=== PATIENT | female | born 1990 | race Caucasian/White ===

== ENCOUNTER 2018-02-19 09:45 | Inpatient (IN) | payer OTHER ==
[2018-02-19] MEDS ORDERED: TERBUTALINE 1 ML (11:01)
[2018-02-19 11:09] LABS: ADD UMIC NO; UR ASCORBIC ACID NEGATIVE (NEGATIVE); UR BACTERIA FEW /HPF (NONE SEEN); UR BILIRUBIN (Dip) NEGATIVE (NEGATIVE); UR BLOOD (Dip) NEGATIVE (NEGATIVE); UR CLARITY SLIGHTLY CLOUDY (CLEAR); UR COLOR YELLOW (YELLOW); UR GLUCOSE (Dip) NEGATIVE (NEGATIVE); UR KETONES (Dip) NEGATIVE (NEGATIVE); UR LEUKOCYTE ESTERASE (Dip) NEGATIVE Leu/ul (NEGATIVE); UR NITRITE (Dip) NEGATIVE (NEGATIVE); UR RBC 1 /HPF (0-5); UR SPECIFIC GRAVITY (Dip) 1.014 (1.003-1.030); UR SQUAMOUS EPITHELIAL CELL FEW /HPF (FEW); UR TOTAL PROTEIN (Dip) NEGATIVE (NEGATIVE); UR UROBILINOGEN (Dip) NEGATIVE (NEGATIVE); UR WBC 1 /HPF (0-5)
[2018-02-19] MEDS: LACTATED RINGER'S 1,000 ML IV ×4 (11:09→18:29)
[2018-02-19] MEDS: TERBUTALINE 1 MG/ML INJ SC (11:10)
[2018-02-19] MEDS: BETAMET NA PHOS/AC(6 MG/ML) 5ML INJ IM (14:57)
[2018-02-19] MEDS: MAGNESIUM SULFATE 4 GM/100 ML 100 ML IV (15:04)
[2018-02-19] MEDS: MAGNESIUM SULFATE 20 GM/500 ML 500 ML IV (16:00)
[2018-02-19 17:00] LABS: ADD MAN DIFF? NO
[2018-02-19 17:03] LABS: BASOPHILS % 0.3 % (0.0-2.0); EOSINOPHILS # 0.1 10^3/ul (0.0-0.5); EOSINOPHILS % 0.6 % (0.0-7.0); HEMATOCRIT 35.5 % (37.0-47.0); HEMOGLOBIN 11.7 g/dl (12.0-16.0); LYMPHOCYTES # 1.3 10^3/ul (0.8-2.9); LYMPHOCYTES % 10.3 % (15.0-51.0); MEAN CORPUSCULAR HEMOGLOBIN 29.4 pg (29.0-33.0); MEAN CORPUSCULAR VOLUME 89.2 fl (82.0-101.0); MEAN PLATELET VOLUME 9.5 fl (7.4-10.4); MONOCYTE # 0.3 10^3/ul (0.3-0.9); MONOCYTES % 2.3 % (0.0-11.0); NEUTROPHIL # 10.8 10^3/ul (1.6-7.5); NEUTROPHILS % 85.1 % (39.0-77.0); PLATELET COUNT 503 10^3/UL (140-415); RED BLOOD COUNT 3.98 10^6/ul (4.20-5.40); RED CELL DISTRIBUTION WIDTH 13.1 % (11.5-14.5)
[2018-02-19 17:03] LABS: WHITE BLOOD COUNT 12.7 10^3/ul (4.8-10.8)
[2018-02-19 17:23] LABS: INR 0.92; PROTIME 12.4 Sec (11.9-14.9)
[2018-02-19 17:24] LABS: PARTIAL THROMBOPLASTIN TIME 28.3 Sec (25.0-35.0)
[2018-02-20 00:38] LABS: MAGNESIUM 5.2 mg/dl (1.7-2.5)
[2018-02-20] MEDS: MAGNESIUM SULFATE 20 GM/500 ML 500 ML IV (01:40)
[2018-02-20] MEDS: LACTATED RINGER'S 1,000 ML IV (06:48)
[2018-02-20 07:06] LABS: MAGNESIUM 5.6 mg/dl (1.7-2.5)
[2018-02-20] MEDS ORDERED: ONDANSETRON 4 MG INJ IV (09:30)
[2018-02-20] MEDS ORDERED: AL HYDROX/MG HYDROX/SIMETH 30 ML CUP PO (09:30)
[2018-02-20] MEDS: DOCUSATE SODIUM 100 MG CAP PO (09:34)
[2018-02-20] MEDS: FERROUS SULFATE (EC) 325 MG TAB PO (09:35)
[2018-02-20] MEDS: PRENATAL VITAMIN PO (09:35)
[2018-02-20] MEDS: ACETAMINOPHEN 325 MG TAB PO (09:36)
[2018-02-20 12:41] LABS: AMPHETAMINE/METHAMPHETAMINE Negative (NEGATIVE); BARBITURATES Negative (NEGATIVE); BENZODIAZEPINES Negative (NEGATIVE); CANNABINOIDS Negative (NEGATIVE); COCAINE Negative (NEGATIVE); OPIATES Negative (NEGATIVE)
[2018-02-20] MEDS: BETAMET NA PHOS/AC(6 MG/ML) 5ML INJ IM (15:01)
[2018-02-20 16:40] LABS: RAPID PLASMA REAGIN NONREACTIVE (NR)
[2018-02-21] MEDS: FERROUS SULFATE (EC) 325 MG TAB PO (09:11)
[2018-02-21] MEDS: PRENATAL VITAMIN PO (09:11)
[2018-02-21] MEDS: DOCUSATE SODIUM 100 MG CAP PO (09:11)
== END 2018-02-21 10:30 | disposition home or self-care (01) | DRG 782 ==
LOC: OBT 09:45 → L-D 09:46 → OBT 14:01 → L-D 13:30
DX: O62.9 Abnormality of forces of labor, unspecified (principal); Z3A.25 25 weeks gestation of pregnancy
CPT/HCPCS: 76815; 76817; 80307; 81001; 81003; 83735; 85025; 85610; 85730; 86592; 86850; 86900; 86901; 87086; 96360; 96361; 96372

== ENCOUNTER 2018-05-06 10:17 | Inpatient (IN) | payer OTHER ==
[2018-05-06] MEDS: LACTATED RINGER'S 1,000 ML IV* ×2 (11:58→17:19)
[2018-05-06] MEDS ORDERED: CARBOPROST 250 MCG INJ IM ×2 (12:00→22:00)
[2018-05-06] MEDS ORDERED: LIDOCAINE 1% (MPF) 30 ML INJ INJ (12:00)
[2018-05-06] MEDS ORDERED: BUTORPHANOL 2 MG INJ IV (12:00)
[2018-05-06] MEDS ORDERED: MISOPROSTOL 200 MCG TAB PR ×2 (12:00→22:00)
[2018-05-06] MEDS ORDERED: METHYLERGONOVINE 0.2 MG INJ IM ×2 (12:00→22:00)
[2018-05-06] MEDS ORDERED: OXYTOCIN 30 UNITS/LR 500 ML IV ×2 (12:00→22:00)
[2018-05-06 12:03] LABS: ADD MAN DIFF? NO
[2018-05-06 12:06] LABS: BASOPHILS % 0.5 % (0.0-2.0); EOSINOPHILS # 0.1 10^3/ul (0.0-0.5); EOSINOPHILS % 1.2 % (0.0-7.0); HEMATOCRIT 36.2 % (37.0-47.0); LYMPHOCYTES # 1.3 10^3/ul (0.8-2.9); LYMPHOCYTES % 15.7 % (15.0-51.0); MEAN CORPUSCULAR HEMOGLOBIN 28.6 pg (29.0-33.0); MEAN CORPUSCULAR HGB CONC 33.1 g/dl (32.0-37.0); MEAN CORPUSCULAR VOLUME 86.4 fl (82.0-101.0); MEAN PLATELET VOLUME 10.4 fl (7.4-10.4); MONOCYTE # 0.5 10^3/ul (0.3-0.9); MONOCYTES % 6.5 % (0.0-11.0); NEUTROPHILS % 74.5 % (39.0-77.0); PLATELET COUNT 418 10^3/UL (140-415); RED BLOOD COUNT 4.19 10^6/ul (4.20-5.40)
[2018-05-06] MEDS: AMPICILLIN 2 GM/NS (PMX) 100 ML IV (12:14)
[2018-05-06 12:29] LABS: PARTIAL THROMBOPLASTIN TIME 27.7 Sec (25.0-35.0); PROTIME 11.1 Sec (11.9-14.9); PT RATIO 0.9
[2018-05-06] MEDS: AMPICILLIN 1 GM/NS (PMX) 50 ML IV ×2 (15:30→19:39)
[2018-05-06 17:16] LABS: RAPID PLASMA REAGIN NONREACTIVE (NR)
[2018-05-06] MEDS ORDERED: FENTAnyl 2MCG/ML-ROPIV 0.2% 100 ML (17:20)
[2018-05-06 19:39] LABS: AMPHETAMINE/METHAMPHETAMINE Negative (NEGATIVE); BARBITURATES Negative (NEGATIVE); BENZODIAZEPINES Negative (NEGATIVE); CANNABINOIDS Negative (NEGATIVE); COCAINE Negative (NEGATIVE); OPIATES Negative (NEGATIVE)
[2018-05-06 20:28] LABS: HEPATITIS B SURFACE ANTIGEN NEGATIVE (NEGATIVE)
[2018-05-06] MEDS ORDERED: ONDANSETRON 4 MG INJ IV ×2 (21:00→22:00)
[2018-05-06] MEDS ORDERED: NALOXONE (0.4 MG/ML) INJ IV (21:00)
[2018-05-06] MEDS ORDERED: FENTAnyl 2MCG/ML-ROPIV 0.2% 100 ML BAG EPI (21:00)
[2018-05-06] MEDS ORDERED: DIPHENHYDRAMINE 50 MG INJ IV (21:00)
[2018-05-06] MEDS: OXYTOCIN 30 UNITS/LR 500 ML IV ×2 (21:42→23:13)
[2018-05-06] MEDS ORDERED: DIBUCAINE 1% 30 GM OINT PR (22:00)
[2018-05-06] MEDS ORDERED: ACETAMINOPHEN 325 MG TAB PO (22:00)
[2018-05-06] MEDS ORDERED: NACL 0.9% 3 ML SYG IV (22:00)
[2018-05-06] MEDS ORDERED: SENNA/DOCUSATE NA (8.6MG/50MG) TAB PO (22:00)
[2018-05-06] MEDS ORDERED: OXYCODONE/ASPIRIN (4.88/325) TAB PO (22:00)
[2018-05-07] MEDS: WITCH HAZEL/GLYCERIN PAD PR (01:26)
[2018-05-07] MEDS: BENZOCAINE 20% 56 ML SPRAY TOP (01:27)
[2018-05-07] MEDS: IBUPROFEN 600 MG TAB PO ×4 (01:27→17:40)
[2018-05-07] MEDS: LANOLIN 7 GM TUBE TOP (01:27)
[2018-05-07] MEDS: OXYCODONE/ASPIRIN (4.88/325) TAB PO ×2 (04:13→16:43)
[2018-05-07 08:20] LABS: ADD MAN DIFF? NO
[2018-05-07 08:24] LABS: WHITE BLOOD COUNT 12.3 10^3/ul (4.8-10.8)
[2018-05-07 08:24] LABS: BASOPHILS % 0.2 % (0.0-2.0); EOSINOPHILS # 0.1 10^3/ul (0.0-0.5); EOSINOPHILS % 0.5 % (0.0-7.0); HEMATOCRIT 32.2 % (37.0-47.0); HEMOGLOBIN 10.7 g/dl (12.0-16.0); LYMPHOCYTES # 1.7 10^3/ul (0.8-2.9); LYMPHOCYTES % 13.5 % (15.0-51.0); MEAN CORPUSCULAR HEMOGLOBIN 28.8 pg (29.0-33.0); MEAN CORPUSCULAR HGB CONC 33.2 g/dl (32.0-37.0); MEAN CORPUSCULAR VOLUME 86.8 fl (82.0-101.0); MEAN PLATELET VOLUME 10.7 fl (7.4-10.4); MONOCYTE # 0.7 10^3/ul (0.3-0.9); MONOCYTES % 5.8 % (0.0-11.0); NEUTROPHIL # 9.7 10^3/ul (1.6-7.5); NEUTROPHILS % 78.9 % (39.0-77.0); PLATELET COUNT 347 10^3/UL (140-415); RED BLOOD COUNT 3.71 10^6/ul (4.20-5.40); RED CELL DISTRIBUTION WIDTH 13.9 % (11.5-14.5)
[2018-05-07] MEDS: SENNA/DOCUSATE NA (8.6MG/50MG) TAB PO ×2 (08:52→21:44)
[2018-05-07] MEDS: FERROUS SULFATE (EC) 325 MG TAB PO (21:44)
[2018-05-08] MEDS: OXYCODONE/ASPIRIN (4.88/325) TAB PO ×2 (00:06→12:32)
[2018-05-08] MEDS: IBUPROFEN 600 MG TAB PO ×3 (05:40→12:00)
[2018-05-08] MEDS: FERROUS SULFATE (EC) 325 MG TAB PO (08:57)
[2018-05-08] MEDS: SENNA/DOCUSATE NA (8.6MG/50MG) TAB PO (08:57)
== END 2018-05-08 16:00 | disposition home or self-care (01) | DRG 775 ==
LOC: OBT 10:17 → PP1 05-07 00:30 → L-D 10:17 → OBT 10:53 → L-D 10:53
PROVIDERS: Obstetrics & Gynecology
PROC: 10E0XZZ Delivery of Products of Conception, External Approach (ICD-10-PCS; principal; 2018-05-06)
PROC: 0W8NXZZ Division of Female Perineum, External Approach (ICD-10-PCS; 2018-05-06)
DX: O80 Encounter for full-term uncomplicated delivery (principal); Z3A.37 37 weeks gestation of pregnancy
CPT/HCPCS: 62319; 80307; 85025; 85610; 85730; 86592; 86850; 86900; 86901; 87340; 99464